=== PATIENT | male | born 1950 | race Two or more races ===

== ENCOUNTER 2021-08-23 16:07 | Emergency (ER) | payer MEDICARE, MEDICAID ==
[~2021-08-23] VITALS: Ht 172.7 cm; Wt 82.0 kg
[2021-08-23] MEDS ORDERED: IBUPROFEN 400MG TABLET PO ONE (16:45)
[2021-08-23 17:55] LABS: CHLORIDE 104 mEq/L (98-107)
[2021-08-23 18:14] LABS: BASOPHILS % 0.7 % (0.0-2.0); HEMATOCRIT. 47.8 % (42.0-52.0); HEMOGLOBIN. 16.3 g/dL (14.0-18.0); LYMPHOCYTES % 29.1 % (20.0-50.0); MEAN CORPUSCULAR HEMOGLOBIN 31.2 pg (28.0-32.0); MEAN CORPUSCULAR VOLUME 91.7 fL (80.0-94.0); MEAN PLATELET VOLUME 8.8 fl (7.4-10.4); MONOCYTES % 8.9 % (2.0-8.0); NEUTROPHILS % 59.3 % (40.0-76.0); PLATELET 191 x1000/uL (130-400); RED BLOOD CELL COUNT 5.22 mill/uL (4.7-6.1); RED CELL DISTRIBUTION WIDTH 12.9 % (11.6-14.6)
[2021-08-23 18:20] LABS: PARTIAL THROMBOPLASTIN TIME 22.3 sec (23.4-31.0); PROTHROMBIN TIME 10.6 sec (9.6-11.0)
[2021-08-23] MEDS ORDERED: IBUP-2028 MT (22:40)
[2021-08-23 23:58] VITALS: BP 152/78
== END 2021-08-23 23:59 | disposition home or self-care (01) ==
LOC: ER 16:07 → CANBEDREQ 08-24 06:35
DX: M48.02 Spinal stenosis, cervical region (principal); M48.07 Spinal stenosis, lumbosacral region; Z87.828 Personal history of other (healed) physical injury and trauma; I25.2 Old myocardial infarction; Z85.528 Personal history of other malignant neoplasm of kidney; Z85.51 Personal history of malignant neoplasm of bladder; Z98.61 Coronary angioplasty status; Z86.711 Personal history of pulmonary embolism
CPT/HCPCS: 36415; 71045; 72141; 72146; 72148; 80053; 84484; 85025; 86850; 86900; 93005; 99285